=== PATIENT | male | born 1965 | race Caucasian/White ===

== ENCOUNTER 2017-11-04 11:17 | Emergency (ER) | payer BC ==
[2017-11-04] MEDS ORDERED: HYDROcodone/ACETAMIN 5-325 MG* 1 TAB PO ONE (11:55)
--- NOTE | 2017-11-04 12:20 | UC ---
Shoulder Pain HPI - HPI Summary HPI Summary: Fell down 6 stairs last night. ? broken collar bone and ribs. - History of Current Complaint Chief Complaint: UCUpperExtremity Stated Complaint: S/P FALL COLLARBONE INJURY Time Seen by Provider: 11/04/17 12:08 Hx Obtained From: Patient Onset/Duration: Sudden Onset - last night, Worse Since - today Timing: Constant Severity Initially: Moderate Severity Currently: Severe Pain Intensity: 10 Character: Sharp, Dull, Aching Aggravating Factor(s): Movement Alleviating Factor(s): Rest Associated Signs And Symptoms: Negative: Weakness, Numbness/Tingling Related History: Dominant Hand Right - Risk Factors DVT Risk Factors: Recent Trauma - Allergies/Home Medications Allergies/Adverse Reactions: Allergies Allergy/AdvReac Type Severity Reaction Status Date / Time No Known Allergies Allergy Verified 11/04/17 11:51 Home Medications: Home Medications Loratadine [Claritin] 10 mg PO DAILY 11/04/17 [History Confirmed 11/04/17] PMH/Surg Hx/FS Hx/Imm Hx Previously Healthy: Yes - Surgical History Surgical History: Yes Surgery Procedure, Year, and Place: hand - Family History Known Family History: Negative: Cardiac Disease, Hypertension, Diabetes - Social History Occupation: Employed Full-time Lives: With Family Alcohol Use: Occasionally Substance Use Type: None Smoking Status (MU): Never Smoked Tobacco Review of Systems Cardiovascular: Chest Pain Is Patient Immunocompromised?: No All Other Systems Reviewed And Are Negative: Yes Physical Exam Triage Information Reviewed: Yes Appearance: Well-Appearing, No Pain Distress - at rest. Pain with movement and deep breathing., Well-Nourished Vital Signs: Initial Vital Signs Temp 99.4 F 11/04/17 11:51 Pulse 87 11/04/17 11:51 Resp 16 11/04/17 11:51 BP 109/78 11/04/17 11:51 Pulse Ox 98 11/04/17 11:51 Vital Signs Reviewed: Yes Eyes: Positive: Conjunctiva Inflamed Neck exam: Normal Respiratory Exam: Normal Cardiovascular Exam: Normal Musculoskeletal: Positive: ROM Limited @ - right shoulder. Obvious right clavicle deformity. Neurological Exam: Normal Psychological Exam: Normal Skin Exam: Normal Shoulder Course/Dx - Differential Dx/Diagnosis Differential Diagnosis/HQI/PQRI: AC Separation, Fracture (Closed), Sprain, Strain Provider Diagnoses: Displaced right clavicular fracture. Non-displaced 3rd and 4th right sided rib fracture. Discharge - Sign-Out/Discharge Documenting (check all that apply): Discharge/Admit/Transfer - Discharge Plan Condition: Stable Disposition: HOME Prescriptions: Hydrocodone/Acetaminophen [[place] 5-325 Tablet] 1 each PO Q4HR PRN #30 tablet MDD 6 PRN Reason: Pain - Moderate To Severe Patient Education Materials: Clavicle Fracture (ED), Rib Fracture (ED), Hydrocodone/Acetaminophen (By mouth) Referrals: Geena VEGA,Stalin Rdz [Primary Care Provider] - Additional Instructions: Shoulder Pain HPI - HPI Summary HPI Summary: Fell down 6 stairs last night. ? broken collar bone and ribs. - History of Current Complaint Chief Complaint: UCUpperExtremity Stated Complaint: S/P FALL COLLARBONE INJURY Time Seen by Provider: 11/04/17 12:08 Hx Obtained From: Patient Onset/Duration: Sudden Onset - last night, Worse Since - today Timing: Constant Severity Initially: Moderate Severity Currently: Severe Pain Intensity: 10 Character: Sharp, Dull, Aching Aggravating Factor(s): Movement Alleviating Factor(s): Rest Associated Signs And Symptoms: Negative: Weakness, Numbness/Tingling Related History: Dominant Hand Right - Risk Factors DVT Risk Factors: Recent Trauma - Allergies/Home Medications Allergies/Adverse Reactions: Allergies Allergy/AdvReac Type Severity Reaction Status Date / Time No Known Allergies Allergy Verified 11/04/17 11:51 Home Medications: Home Medications Loratadine [Claritin] 10 mg PO DAILY 11/04/17 [History Confirmed 11/04/17] PMH/Surg Hx/FS Hx/Imm Hx Previously Healthy: Yes - Surgical History Surgical History: Yes Surgery Procedure, Year, and Place: hand - Family History Known Family History: Negative: Cardiac Disease, Hypertension, Diabetes - Social History Occupation: Employed Full-time Lives: With Family Alcohol Use: Occasionally Substance Use Type: None Smoking Status (MU): Never Smoked Tobacco Review of Systems Cardiovascular: Chest Pain Is Patient Immunocompromised?: No All Other Systems Reviewed And Are Negative: Yes Physical Exam Triage Information Reviewed: Yes Appearance: Well-Appearing, No Pain Distress - at rest. Pain with movement and deep breathing., Well-Nourished Vital Signs: Initial Vital Signs Temp 99.4 F 11/04/17 11:51 Pulse 87 11/04/17 11:51 Resp 16 11/04/17 11:51 BP 109/78 11/04/17 11:51 Pulse Ox 98 11/04/17 11:51 Vital Signs Reviewed: Yes Eyes: Positive: Conjunctiva Inflamed Neck exam: Normal Respiratory Exam: Normal Cardiovascular Exam: Normal Musculoskeletal: Positive: ROM Limited @ - right shoulder. Obvious right clavicle deformity. Neurological Exam: Normal Psychological Exam: Normal Skin Exam: Normal Shoulder Course/Dx - Differential Dx/Diagnosis Differential Diagnosis/HQI/PQRI: AC Separation, Fracture (Closed), Sprain, Strain Provider Diagnoses: Displaced right clavicular fracture. Non-displaced 3rd and 4th right sided rib fracture. Discharge - Sign-Out/Discharge Documenting (check all that apply): Discharge/Admit/Transfer - Discharge Plan Condition: Stable Disposition: HOME Prescriptions: Hydrocodone/Acetaminophen [[place] 5-325 Tablet] 1 each PO Q4HR PRN #30 tablet MDD 6 PRN Reason: Pain - Moderate To Severe Patient Education Materials: Clavicle Fracture (ED), Rib Fracture (ED), Hydrocodone/Acetaminophen (By mouth) Referrals: Geena VEGA,Stalin Rdz [Primary Care Provider] - - Billing Disposition and Condition Condition: STABLE Disposition: HOME Make F/U with [facility] tomorrow for further evaluation. - Billing Disposition and Condition Condition: STABLE Disposition: HOME
--- NOTE | 2017-11-04 12:26 | RAD ---
Indication: RIGHT shoulder, clavicle, and rib pain post fall. Comparison: No relevant prior exams available on the [facility] [place] for [place]. Technique: Internal rotation AP, external rotation Grashey, scapular Y, axillary views RIGHT shoulder. PA chest and bilateral rib series. Report: Acute fracture at the junction of the mid and distal thirds of the RIGHT clavicle with 1.5 bone widths inferior displacement and overlying soft tissue swelling. Negative for additional fracture about the RIGHT shoulder. Normal acromioclavicular and glenohumeral joint alignment. Mild AC joint osteophytosis and subchondral sclerosis. Acute fractures of the RIGHT fourth through seventh ribs laterally. Mild displacement of the RIGHT fifth and sixth rib fractures. Associated small RIGHT pleural effusion and atelectasis versus pulmonary contusion. Negative for pneumothorax. Negative for LEFT rib fracture. The heart, pulmonary vasculature, and mediastinal contours are unremarkable. IMPRESSION: 1. Acute fracture at the junction of the mid and distal thirds of the RIGHT clavicle with 1.5 bone widths inferior displacement and overlying soft tissue swelling. 2. Multiple RIGHT rib fractures. Small associated pleural effusion and atelectasis versus pulmonary contusion. Negative for pneumothorax.
--- NOTE | 2017-11-04 12:26 | RAD ---
Indication: RIGHT shoulder, clavicle, and rib pain post fall. Comparison: No relevant prior exams available on the [facility] PACS for comparison. Technique: Internal rotation AP, external rotation Grashey, scapular Y, axillary views RIGHT shoulder. PA chest and bilateral rib series. Report: Acute fracture at the junction of the mid and distal thirds of the RIGHT clavicle with 1.5 bone widths inferior displacement and overlying soft tissue swelling. Negative for additional fracture about the RIGHT shoulder. Normal acromioclavicular and glenohumeral joint alignment. Mild AC joint osteophytosis and subchondral sclerosis. Acute fractures of the RIGHT fourth through seventh ribs laterally. Mild displacement of the RIGHT fifth and sixth rib fractures. Associated small RIGHT pleural effusion and atelectasis versus pulmonary contusion. Negative for pneumothorax. Negative for LEFT rib fracture. The heart, pulmonary vasculature, and mediastinal contours are unremarkable. IMPRESSION: 1. Acute fracture at the junction of the mid and distal thirds of the RIGHT clavicle with 1.5 bone widths inferior displacement and overlying soft tissue swelling. 2. Multiple RIGHT rib fractures. Small associated pleural effusion and atelectasis versus pulmonary contusion. Negative for pneumothorax.
== END 2017-11-04 13:02 | disposition home or self-care (01) ==
LOC: UCCORT 11:17
DX: S42.001A Fracture of unspecified part of right clavicle, initial encounter for closed fracture (principal); S22.41XA Multiple fractures of ribs, right side, initial encounter for closed fracture; W10.9XXA Fall (on) (from) unspecified stairs and steps, initial encounter; Y92.9 Unspecified place or not applicable
CPT/HCPCS: 71110; 99203; G0463